=== PATIENT | male | born 1940 | race Caucasian/White ===

== ENCOUNTER 2017-01-25 07:54 | Day surgery (SDC) | payer MEDICARE, BC ==
[~2017-01-25 07:54] MED LIST: Buffered Lidocaine 1% SYRIN* 5 ML/SYR SYRINGE INTRADERM ONE
[2017-01-25] MEDS ORDERED: Midazolam* 1 MG/ML 2 ML VIAL (2 MG) ONE ×2 (10:09→10:10)
[2017-01-25 10:36] VITALS: BP 115/56
[2017-01-25] MEDS ORDERED: acetaZOLAMIDE TAB* 250 MG ONE (11:27)
[2017-01-25] MEDS ORDERED: Povidone Iodine 5% OPTH* 30 ML BTL ONE (11:28)
[2017-01-25] MEDS ORDERED: Proparacaine 0.5% OPHTH.SOL* 15 ML BTL ONE (11:28)
[2017-01-25] MEDS ORDERED: Lidocaine 1% MPF* 2 ML VIAL ONE (11:28)
[2017-01-25] MEDS ORDERED: Lidocaine 2% EPI 1:200000 MPF* 20 ML VIAL ONE (11:28)
[2017-01-25] MEDS ORDERED: Phenylephrine 2.5% OPTH.SOL* 2 ML BTL ONE (11:28)
[2017-01-25] MEDS ORDERED: Cyclopentolate 1% OPTH.SOL* 2 ML BTL ONE (11:28)
[2017-01-25] MEDS ORDERED: Flurbiprofen 0.03% OPTH.SOL* 2.5 ML BTL ONE (11:28)
[2017-01-25] MEDS ORDERED: Neomycin/Polymy/Dex OPTH.SUSP* MAXITROL 0.1% 5 ML ONE (11:28)
--- NOTE | 2017-01-26 02:32 | OP ---
OPERATIVE NOTE: DATE OF OPERATION: 01/25/17 - [facility] DATE OF : 42 SURGEON: Fabian Valerio MD. PREOPERATIVE DIAGNOSIS: Cataract, right eye. POSTOPERATIVE DIAGNOSIS: Cataract, right eye. OPERATIVE PROCEDURE: Phacoemulsification, right eye with IOL. PROCEDURE: The patient was brought to the operating room after being given 1/2 % Alcaine with epinephrine drops in the preoperative area. The eye was prepped and draped in the usual sterile fashion. Sterile drape and eyelid speculum were placed. Again, topical 1/2% Alcaine with epinephrine was given. A paracentesis incision was made at the 9 o'clock position with the No.75 blade. Clear cornea incision 2.2 x 2.2-mm was created at the 12 o'clock position starting at the anterior limbus using the 2.2-mm keratome. The anterior chamber was irrigated with 0.4 mL of 1% non-preservative intracameral lidocaine and filled with DisCoVisc. A capsulorrhexis was completed using the cystotome and the Utrata forceps. Hydrodissection was performed with balanced salt solution. The lens nucleus was removed with the Phacoemulsification handpiece without incident. Cortex was removed with the irrigation-aspiration handpiece. The capsular bag was re-inflated using DisCoVisc and an [id number] 14.5 implant was inserted with the shooter, entered through the 112 degree meridian. The horizontal jameson were made with the patient in preoperative area in seated position. The irrigation-aspiration handpiece was used to remove all residual DisCoVisc. The eye was refilled with balanced salt solution and the wound checked and found to be watertight. Topical Maxitrol drops were given. [id number]/[facility] #: [id number] MTDD
== END 2017-01-25 10:47 | disposition home or self-care (01) ==
LOC: OREAST 07:54
PROVIDERS: ATTEND Specialist
DX: H25.11 Age-related nuclear cataract, right eye (principal); H35.3223 Exudative age-related macular degeneration, left eye, with inactive scar; I44.0 Atrioventricular block, first degree; K21.9 Gastro-esophageal reflux disease without esophagitis
CPT/HCPCS: A9270-GY; J2250; V2787

== ENCOUNTER 2017-02-01 08:03 | Day surgery (SDC) | payer MEDICARE, BC ==
[~2017-02-01 08:03] MED LIST changes: +Acetaminophen TAB* 325 MG PO PRN
[2017-02-01] MEDS ORDERED: Midazolam* 1 MG/ML 5 ML VIAL (5 MG) ONE (10:11)
[2017-02-01 10:43] VITALS: BP 119/56
[2017-02-01] MEDS ORDERED: Flurbiprofen 0.03% OPTH.SOL* 2.5 ML BTL ONE (12:09)
[2017-02-01] MEDS ORDERED: Proparacaine 0.5% OPHTH.SOL* 15 ML BTL ONE (12:09)
[2017-02-01] MEDS ORDERED: Lidocaine 2% EPI 1:200000 MPF* 20 ML VIAL ONE (12:09)
[2017-02-01] MEDS ORDERED: Cyclopentolate 1% OPTH.SOL* 2 ML BTL ONE (12:09)
[2017-02-01] MEDS ORDERED: Phenylephrine 2.5% OPTH.SOL* 2 ML BTL ONE (12:09)
[2017-02-01] MEDS ORDERED: Lidocaine 1% MPF* 2 ML VIAL ONE (12:09)
[2017-02-01] MEDS ORDERED: Povidone Iodine 5% OPTH* 30 ML BTL ONE (12:09)
[2017-02-01] MEDS ORDERED: Neomycin/Polymy/Dex OPTH.SUSP* MAXITROL 0.1% 5 ML ONE (12:09)
--- NOTE | 2017-02-01 14:19 | OP ---
OPERATIVE NOTE: DATE OF OPERATION: 02/01/17 DATE OF : 42 SURGEON: Fabian Valerio M.D. PREOPERATIVE DIAGNOSIS: Cataract, left eye. POSTOPERATIVE DIAGNOSIS: Cataract, left eye. OPERATIVE PROCEDURE: Phacoemulsification, left eye with IOL. PROCEDURE: The patient was brought to the operating room after being given 1/2% Alcaine with epinep hrine drops in the preoperative area. The eye was prepped and draped in the usual sterile fashion. Sterile drape and eyelid speculum were placed. Again, topical 1/2% Alcaine with epinephrine was gi idris. A paracentesis incision was made at the 3 o'clock position with the No.75 blade. Clear cornea incision 2.2 x 2.2-mm was created at the 6 o'clock position starting at the anterior limbus using t he 2.2-mm keratome. The anterior chamber was irrigated with 0.4 mL of 1% non-preservative intracame ral lidocaine and filled with DisCoVisc. A capsulorrhexis was completed using the cystotome and the Utrata forceps. Hydrodissection was performed with balanced salt solution. The lens nucleus was re moved with the Phacoemulsification handpiece without incident. Cortex was removed with the irrigati on-aspiration handpiece. The capsular bag was re-inflated using DisCoVisc and an [id number] 15-diopter implant was inserted with the shooter. The irrigation-aspiration handpiece was used to remove all re sidual DisCoVisc. The eye was refilled with balanced salt solution and the wound checked and found to be watertight. Topical Maxitrol drops were given. [id number]/[facility] #: [id number]
== END 2017-02-01 10:52 | disposition home or self-care (01) ==
LOC: OREAST 08:03
PROVIDERS: ATTEND Specialist
DX: H25.12 Age-related nuclear cataract, left eye (principal); Z79.82 Long term (current) use of aspirin; Z88.1 Allergy status to other antibiotic agents; Z88.0 Allergy status to penicillin; Z88.2 Allergy status to sulfonamides
CPT/HCPCS: A9270-GY; J2250; V2632

== ENCOUNTER 2017-05-09 08:40 | Emergency (ER) | payer MEDICARE, BC ==
[2017-05-09 09:18] VITALS: BP 99/74
--- NOTE | 2017-05-09 10:45 | UC ---
Sandra Cruz Thomas, scribed for Cox BransonSanjay MD on 05/09/17 at 1008 . Complaint Male HPI - HPI Summary HPI Summary: The pt is a 76 y/o M presenting to [facility] c/o poor urinary stream that began five days ago. He also notes that 7 days ago, he had sudden-onset diarrhea that resolved after a day. Following this, he took Imodium and had residual stomach discomfort for a few days. At [facility], he also c/o nausea (yesterday), fever (onset 5 days ago and Temp 99 at [facility]), fatigue, back pain (normal per him after hiking) , and myalgia. He denies dysuria, perineal pain, CP, and abd pain. He notes that he chronically and intermittently has SOB, but he denies SOB at [facility]. He also notes a twinge of pain when he orgasms. The pain is aggravated and alleviated by nothing. The patient has treated the pain with Advil [employer]. He rates his current level of pain 9/10. PMHx: malaria, macular degeneration, arthritis. PSHx: congenital hernia repair, tonsillectomy, colonoscopy. SHx: daily alcohol use, no smoking. FHx: prostate [place], [place], [place]. He notes that his BP normally runs low. 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 He last saw his PCP last month and he had a normal exam including a prostate palpation. Note: 76 y/o with a Hx of malaria. Feels sick .Temp 99. BP 99/74. 9/10 pain discomfort. Visit history includes arthritis and GERD. Nurses Note: Body aches, poor urinary stream, nausea. Feels, "toxic." Loose stools as well. - History of Current Complaint Chief Complaint: UCGeneralIllness Stated Complaint: BODYACHES URINARY ISSUE Time Seen by Provider: 05/09/17 09:58 Hx Obtained From: Patient Onset/Duration: Lasting Days - 5, Still Present Timing: Intermittent Pain Intensity: 9 Pain Scale Used: 0-10 Numeric Aggravating Factor(s): Nothing Alleviating Factor(s): Nothing Associated Signs And Symptoms: Positive: Back Pain, Nausea. 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 colonoscopies. tonsillectomy as small child - Family History Known Family History: Positive: Diabetes, Other - POS: prostate [place], [place] - Social History Alcohol Use: Daily Substance Use Type: None Smoking Status (MU): Never Smoked Tobacco Review of Systems Constitutional: Fever - Temp 99 at [facility] but patient reports fever for 5 days Skin: Negative Eyes: Negative ENT: Negative Respiratory: Negative Cardiovascular: Negative Gastrointestinal: Diarrhea - 1 week ago, Nausea Genitourinary: Other - POS: poor urinary stream Motor: Negative Neurovascular: Negative Musculoskeletal: Myalgia, Other: - POS: fatigue Neurological: Negative Psychological: Negative All Other Systems Reviewed And Are Negative: Yes Physical Exam Triage Information Reviewed: Yes Vital Signs: Initial Vital Signs Temp 99.0 F 05/09/17 09:13 Pulse 76 05/09/17 09:13 Resp 18 05/09/17 09:13 BP 99/74 05/09/17 09:13 Pulse Ox 100 05/09/17 09:13 Vital Signs Reviewed: Yes - Additional Comments Appearance: The patient is well-appearing, is in no pain distress, and is well- nourished. Eyes: Conjunctiva are clear. ENT: The hearing is grossly normal, the pharynx is normal, and the TMs are normal. There is no muffled or hoarse voice. Neck: The neck is supple and nontender. Respiratory: The chest is nontender. The lungs are clear, there are normal breath sounds, and there is no respiratory distress. Cardiovascular: Heart is IRREGULAR RATE AND RHYTHM. There is no murmur. Abdomen: The abdomen is soft and nontender. There is no organomegaly. Bowel sounds: present Musculoskeletal: Strength is intact. The patient moves all extremities. Neurological: The patient is alert. Psychological: The patient displays age appropriate behavior Skin: Negative for rashes. Prostate: Nontender. There is a normal prostate. Complaint Male Course/Dx - Course Course Of Treatment: The patient presents with a poor urinary stream for the last 5 days. He also has nausea, fever, back pain, and myalgia. He denies dysuria, perineal pain, CP, and abd pain. Medications have been included in the original chart and reviewed. BP noted. UA negative. He is diagnosed with 1. Prostatitis, 2. Obstructive urinary symptoms. - Differential Dx/Diagnosis Provider Diagnoses: 1. Prostatitis, 2. Obstructive urinary symptoms. Discharge - Discharge Plan Condition: Stable Disposition: HOME Prescriptions: Ciprofloxacin TAB* [Cipro Tab*] 500 mg PO BID #20 tab Patient Education Materials: Prostatitis (ED) Referrals: Neymar Pearce MD [Medical Doctor] - 2 Days Bassam Ojeda MD [Medical Doctor] - 2 Days Additional Instructions: Thank you for helping us improve patient care by filling out the My Point Survey. WE DISCUSSED: 1. You my have prostatitis. I have started you on Cipro. 2. You are having new urinary obstructive symptoms and need to be seen by a urologist. 3. Go to ED for any increased pain, temperature or inability top urinate. 4. Call Dr. Pearce and Lynette's office. The documentation as recorded by the Sandra thomas Thomas accurately reflects the service I personally performed and the decisions made by me, Sanjay Chavez MD.
== END 2017-05-09 10:47 | disposition home or self-care (01) ==
LOC: UCEAST 08:40
DX: N41.9 Inflammatory disease of prostate, unspecified (principal); N13.9 Obstructive and reflux uropathy, unspecified; R11.0 Nausea; M54.9 Dorsalgia, unspecified; K21.9 Gastro-esophageal reflux disease without esophagitis; Z86.13 Personal history of malaria; Z88.0 Allergy status to penicillin; Z88.2 Allergy status to sulfonamides
CPT/HCPCS: 81003; 99212; G0463

== ENCOUNTER 2018-03-25 11:14 | Emergency (ER) | payer MEDICARE, OTHER ==
[2018-03-25 11:28] VITALS: BP 112/74
--- NOTE | 2018-03-25 11:43 | UC ---
Skin Complaint HPI - HPI Summary HPI Summary: started with itchy rash on L lower leg few days ago. now on bilat arms, and R top foot. very itchy. using hydrocortisone cream with good relief - History of Current Complaint Chief Complaint: UCRash Time Seen by Provider: 03/25/18 11:36 Stated Complaint: RASH ON BODY Hx Obtained From: Patient Onset/Duration: Gradual Onset Onset Severity: Mild Current Severity: Mild Pain Intensity: 0 Location: Diffuse Character: Pruritus, Redness, Raised Aggravating Factor(s): OTC Meds Alleviating Factor(s): Nothing Associated Signs & Symptoms: Positive: Negative Similar Episode/Dx as: poison queenie - Allergy/Home Medications Allergies/Adverse Reactions: Allergies Allergy/AdvReac Type Severity Reaction Status Date / Time Penicillins Allergy Intermediate Unknown Verified 03/25/18 11:28 Reaction Details Sulfa (Sulfonamide Allergy Intermediate Unknown Verified 03/25/18 11:28 Antibiotics) Reaction Details Home Medications: Home Medications Valacyclovir HCl [Valacyclovir] 250 mg PO DAILY WITH MEAL 03/25/18 [History Confirmed 03/25/18] Review of Systems Constitutional: Negative Skin: Rash Respiratory: Negative Cardiovascular: Negative Musculoskeletal: Negative Neurological: Negative Psychological: Negative All Other Systems Reviewed And Are Negative: Yes PMH/Surg Hx/FS Hx/Imm Hx Previously Healthy: Yes - Surgical History Surgical History: Yes Surgery Procedure, Year, and Place: 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 colonoscopies. tonsillectomy as small child. prostrate 2017 - Family History Known Family History: Positive: Diabetes, Other - POS: prostate [place], [place] - Social History Occupation: Retired Lives: With Family Alcohol Use: Daily Substance Use Type: None Smoking Status (MU): Never Smoked Tobacco Physical Exam Triage Information Reviewed: Yes Appearance: Well-Appearing, No Pain Distress, Well-Nourished Vital Signs: Initial Vital Signs Temp 97.9 F 03/25/18 11:23 Pulse 69 03/25/18 11:23 Resp 20 03/25/18 11:23 BP 112/74 03/25/18 11:23 Pulse Ox 100 03/25/18 11:23 Vital Signs Reviewed: Yes Eyes: Positive: Conjunctiva Clear Respiratory Exam: Normal Cardiovascular Exam: Normal Neurological Exam: Normal Psychological Exam: Normal Skin: Positive: rashes - erythemic, raised, pruritic rash on lower and upper ext. few with new vesicles, no evidence infection Course/Dx - Differential Diagnoses - Skin Complaint Differential Diagnoses: Allergic Reaction, Poison Queenie - Diagnoses Provider Diagnoses: poison queenie Discharge - Sign-Out/Discharge Documenting (check all that apply): Patient Departure - Discharge Plan Condition: Good Disposition: HOME Patient Education Materials: Poison Queenie (ED) Referrals: Mai Carroll MD [Primary Care Provider] - 2 Days (if no better) Additional Instructions: use Benadryl gel/cream on itchy rash as directed Also use hydrocortisone cream as directed wash exposed skin and clothes in warm soapy water after working in weeds - Billing Disposition and Condition Condition: GOOD Disposition: Home
== END 2018-03-25 12:15 | disposition home or self-care (01) ==
LOC: UCEAST 11:14
DX: L23.7 Allergic contact dermatitis due to plants, except food (principal); T63.791A Toxic effect of contact with other venomous plant, accidental (unintentional), initial encounter; Y92.9 Unspecified place or not applicable; Z88.0 Allergy status to penicillin; Z88.2 Allergy status to sulfonamides
CPT/HCPCS: 99211; G0463

== ENCOUNTER 2018-11-20 10:11 | Emergency (ER) | payer MEDICARE, BC ==
[2018-11-20 10:46] VITALS: BP 120/56
--- NOTE | 2018-11-20 11:00 | UC ---
Skin Complaint HPI - HPI Summary HPI Summary: 78 yo male presents with left big toe redness, pain, and intermittent drainage for the last 2 weeks. He developed this at the nail-skin fold and was much more painful and larger 2 weeks ago. He has been applying OTC triple anbx and this improved his symptoms, but redness and mild pain/swelling still present - thus prompting his visit to today. He is not diabetic. Denies injury, fever, or chills. - History of Current Complaint Chief Complaint: UCSkin Time Seen by Provider: 11/20/18 10:59 Stated Complaint: SKIN ISSUE ON TOE Hx Obtained From: Patient Onset/Duration: Gradual Onset Onset Severity: Moderate Current Severity: Mild Pain Intensity: 3 Pain Scale Used: 0-10 Numeric - Allergy/Home Medications Allergies/Adverse Reactions: Allergies Allergy/AdvReac Type Severity Reaction Status Date / Time Penicillins Allergy Intermediate Unknown Verified 03/25/18 11:28 Reaction Details Sulfa (Sulfonamide Allergy Intermediate Unknown Verified 03/25/18 11:28 Antibiotics) Reaction Details PMH/Surg Hx/FS Hx/Imm Hx - Additional Past Medical History Additional PMH: Erectile Dysfunction GI/ History: Gastroesophageal Reflux - Surgical History Surgical History: Yes Surgery Procedure, Year, and Place: 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 colonoscopies. tonsillectomy as small child. prostrate 2017 - Family History Known Family History: Positive: Diabetes, Other - POS: prostate [place], [place] - Social History Occupation: Retired Lives: With Family Alcohol Use: Daily Substance Use Type: None Smoking Status (MU): Never Smoked Tobacco Review of Systems All Other Systems Reviewed And Are Negative: Yes Constitutional: Positive: Negative Skin: Positive: Other - Left big toe redness and pain Respiratory: Positive: Negative Cardiovascular: Positive: Negative Neurovascular: Positive: Negative Neurological: Positive: Negative Psychological: Positive: Negative Physical Exam - Summary Physical Exam Summary: GENERAL: NAD. WDWN. No pain distress. SKIN: Left big toe: at the nail-skin fold there is mild erythema, edema, and TTP. No active drainage. No streaking. CHEST: No accessory muscle use. Breathing comfortably and in no distress. CV: Pulses intact. Cap refill <2seconds NEURO: Alert. PSYCH: Age appropriate behavior. Triage Information Reviewed: Yes Vital Signs: Initial Vital Signs Temp 98.2 F 11/20/18 10:41 Pulse 71 11/20/18 10:41 Resp 18 11/20/18 10:41 BP 120/56 11/20/18 10:41 Pulse Ox 99 11/20/18 10:41 Vital Signs Reviewed: Yes Course/Dx - Course Course Of Treatment: Left big toe paronychia - Diagnoses Provider Diagnosis: Paronychia Discharge - Sign-Out/Discharge Documenting (check all that apply): Patient Departure All imaging exams completed and their final reports reviewed: No Studies - Discharge Plan Condition: Stable Disposition: HOME Prescriptions: Cephalexin CAP* [Keflex CAP*] 500 mg PO BID #14 cap Patient Education Materials: Paronychia (ED) Referrals: Mai Carroll MD [Primary Care Provider] - Additional Instructions: If you develop a fever, shortness of breath, chest pain, new or worsening symptoms - please call your PCP or go to the ED. - Billing Disposition and Condition Condition: STABLE Disposition: Home
== END 2018-11-20 11:24 | disposition home or self-care (01) ==
LOC: UCEAST 10:11
DX: L03.032 Cellulitis of left toe (principal); Z88.2 Allergy status to sulfonamides; Z88.0 Allergy status to penicillin
CPT/HCPCS: 99212; G0463

== ENCOUNTER 2019-02-15 13:08 | Emergency (ER) | payer MEDICARE, BC ==
--- OUTSIDE RECORDS SUMMARY | 2019-02-15 13:15 | XMS REPORT | Continuity of Care Document ---
:1940 External Reference #:[id number] Author Name Fabian Valerio M.D. Address [address] [place] [address] Care Team Providers Name Role Phone Mai Carroll MD Primary Care Physician Unavailable Payers Date Identification Numbers Payment Provider Subscriber Policy Number: [id number] Medicare - NGS Rubens Thacker PayID: [id number] [address] [place] [address] Policy Number: [id number] [place] Plan Rubens Thacker PayID: [id number] [address] [place] [address] Problems Active Problems Provider Date Pigmentary retinal dystrophy Linsey Marrero O.D. Onset: 07/13/2015 Nuclear senile cataract Linsey Marrero O.D. Onset: 07/13/2015 Venous retinal branch occlusion Linsey Marrero O.D. Onset: 07/13/2015 Exudative age-related macular degeneration Fabian Valerio M.D. Onset: 08/07 Nonexudative age-related macular Fabian Valerio M.D. Onset: 08/07/2015 degeneration Vitreous hemorrhage Amanda Urbina O.D. Onset: 11/14/2015 Retinal hemorrhage Amanda Urbina O.D. Onset: 11/14/2015 Vitreous degeneration Amanda Urbina O.D. 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 Onset: 09/16/2016 degeneration of right eye Presence of intraocular lens Fabian Valerio M.D. 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 Solution Ranitidine HCL Mj [place] 150mg M.D. Tablets Valacyclovir HCL [place] Mj 500mg M.D. Tablets Viagra Sary Mj 100mg Tablets M.D. Vitamin C Unknown 500mg Tablets Aspirin Unknown 81mg Tablets Vitamin B Complex Unknown Tablets Preservision Areds 2 1 cap by mouth Fabian Valerio, Areds twice a day M.D. 2 Capsules Flax Seed Oil twice a day Unknown 1300mg Capsules Pro Nutrients [place] 3 twice a day Unknown 332.5mg Capsules DR History Medications Ciprofloxacin HCL instill one drop 5ml Fabian Valerio, 01/19/2017 - 0.3% in the right eye M.D. 02/12/2017 Solution three times a day, start the day before surgery Ketorolac Tromethamine 1 drop Left eye 10ml Fabian Valerio, 01/19/2017 - 0.5% daily M.Gary 05/21/2017 Solution Prednisolone Acetate 1 drop Left eye 10ml Fabian Valerio, 01/19/2017 - 1% daily M.Gary 05/21/2017 Suspension Medications Administered in Office Medication SIG Qnty Indications Ordering Provider Date Avastin Bevacizumab Fabian Valerio M.D. 04/18/2016 Injection Avastin Bevacizumab Fabian Valerio M.D. 02/22/2016 Injection Avastin Bevacizumab Fabian Valerio M.D. 12/28/2015 Injection Avastin Bevacizumab Fabian Valerio M.D. 11/23/2015 Injection Avastin Bevacizumab Fabian Valerio M.D. 10/05/2015 Injection Avastin Bevacizumab Fabian Valerio M.D. 09/14/2015 Injection Avastin Bevacizumab Fabian Valerio M.D. 08/17/2015 Injection Crizal Sarah Hawkins A.B.O. 02/25/2004 Injection Crizalex Franklin, 12/05/2001 Injection Fclsa Crizal Sarah Hawkins A.B.O. 08/11/2000 Injection Vital Signs Date Vital Result Comment 04/18/2016 1:32pm BP Systolic 128 mmHg BP Diastolic 64 mmHg Heart Rate 58 /min Respiratory Rate 12 /min 02/22/2016 1:58pm BP Systolic 110 mmHg BP Diastolic 64 mmHg Heart Rate 60 /min Respiratory Rate 16 /min 12/28/2015 1:05pm BP Systolic 130 mmHg BP Diastolic 81 mmHg Heart Rate 64 /min Respiratory Rate 16 /min 11/23/2015 1:50pm BP Systolic 121 mmHg BP Diastolic 80 mmHg Heart Rate 60 /min Respiratory Rate 16 /min 10/05/2015 1:43pm BP Systolic 114 mmHg BP Diastolic 66 mmHg Heart Rate 55 /min Respiratory Rate 14 /min 07/13/2015 2:06pm BP Systolic 116 mmHg BP Diastolic 62 mmHg Heart Rate 53 /min Procedures Date Code Description Status 08/07/2018 85764 Scanning Computerized Opthalmic Diagnostic Posterior Seg Completed Retina 08/07/2018 82520 Est Patient Comprehensive Exam Completed 01/25/2018 66757 Scanning Computerized Opthalmic Diagnostic Posterior Seg Completed Retina 01/25/2018 86828 Est Patient Comprehensive Exam Completed 09/25/2017 08927 Scanning Computerized Opthalmic Diagnostic Posterior Seg Completed Retina 09/25/2017 74562 Est Patient Comprehensive Exam Completed 05/22/2017 04858 Scanning Computerized Opthalmic Diagnostic Posterior Seg Completed Retina 05/22/2017 36820 Determination Of Refractive State Completed 05/22/2017 11335 Est Patient Comprehensive Exam Completed 02/01/2017 23987 Extracapsular Cataract Extraction W/Intraocular Lens Completed 01/25/2017 41931 Extracapsular Cataract Extraction W/Intraocular Lens Completed 01/19/2017 67229 Ophthalmic Biometry Completed 01/19/2017 07470 Ophthalmic Biometry Completed 01/19/2017 37443 Computerized Corneal Topography Completed 01/16/2017 05149 Est Patient Comprehensive Exam Completed 01/16/2017 40282 Scanning Computerized Opthalmic Diagnostic Posterior Seg Completed Retina 09/16/2016 40550 Scanning Computerized Opthalmic Diagnostic Posterior Seg Completed Retina 09/16/2016 64077 Est Patient Intermediate Exam Completed 09/16/2016 613 Proomega Tablets Completed 05/16/2016 03107 Scanning Computerized Opthalmic Diagnostic Posterior Seg Completed Retina 05/16/2016 02139 Determination Of Refractive State Completed 05/16/2016 75031 Est Patient Comprehensive Exam Completed 04/18/2016 93440 Injection Intravitreal Of A Pharmacologic Agent Completed 02/22/2016 50496 Injection Intravitreal Of A Pharmacologic Agent Completed 01/11/2016 16272 Scanning Computerized Opthalmic Diagnostic Posterior Seg Completed Retina 01/11/2016 47866 Est Patient Comprehensive Exam Completed 12/28/2015 27667 Injection Intravitreal Of A Pharmacologic Agent Completed 11/27/2015 85516 Est Patient Intermediate Exam Completed 11/23/2015 10952 Injection Intravitreal Of A Pharmacologic Agent Completed 11/14/2015 51489 Est Patient Comprehensive Exam Completed 10/15/2015 27344 Est Patient Comprehensive Exam Completed 10/15/2015 63969 Scanning Computerized Opthalmic Diagnostic Posterior Seg Completed Retina 10/05/2015 40581 Injection Intravitreal Of A Pharmacologic Agent Completed 09/14/2015 41894 Injection Intravitreal Of A Pharmacologic Agent Completed 08/17/2015 23666 Injection Intravitreal Of A Pharmacologic Agent Completed 08/07/2015 96092 Scanning Computerized Opthalmic Diagnostic Posterior Seg Completed Retina 08/07/2015 03437 Est Patient Comprehensive Exam Completed 07/13/2015 07731 Fundus Photography With Interpretation And Report Completed 07/13/2015 41707 Scanning Computerized Opthalmic Diagnostic Posterior Seg Completed Retina 07/13/2015 80661 Determination Of Refractive State Completed 07/13/2015 93767 Est Patient Comprehensive Exam Completed 08/13/2014 52961 Est Patient Comprehensive Exam Completed 01/23/2013 59580 Scanning Computerized Opthalmic Diagnostic Posterior Seg Completed Retina 01/23/2013 72442 Est Patient Comprehensive Exam Completed 01/24/2012 32962 Est Patient Comprehensive Exam Completed 01/24/2012 12771 Determination Of Refractive State Completed 01/24/2012 62243 Scanning Computerized Opthalmic Diagnostic Posterior Seg Completed Retina 12/13/2010 94641 Est Patient Comprehensive Exam Completed 06/24/2010 17971 Determination Of Refractive State Completed 06/24/2010 50759 Est Patient Comprehensive Exam Completed 06/04/2009 63179 Determination Of Refractive State Completed 06/04/2009 44182 Est Patient Comprehensive Exam Completed 04/08/2008 67672 Est Patient Comprehensive Exam Completed 04/05/2007 46619 Est Patient Comprehensive Exam Completed 04/05/2007 82349 Determination Of Refractive State Completed 04/05/2007 85513 Fundus Photography With Interpretation And Report Completed 03/29/2005 85725 Fundus Photography With Interpretation And Report Completed 02/25/2004 113 Crizal Completed 01/07/2004 53513 Determination Of Refractive State Completed 01/07/2004 55815 Est Patient Comprehensive Exam Completed 12/05/2001 113 Crizal Completed 08/11/2000 113 Crizal Completed Encounters Type Date Location Provider Dx Diagnosis Office Visit 01/19/2017 Fabian Brown, H25.11 Age- related 12:30p , parth Watkins nuclear cataract, right eye H25.12 Age-related nuclear cataract, left eye H35.3223 Exudative age-rel mclr degn, left eye, with inactive scar H25.13 Age-related nuclear cataract, bilateral Office Visit 08/13/2013 9:15a Fabian Collado, 362.74 Retinal Dystrophy MD Teodoro, parth Watkins Pigmentary Office Visit 01/24/2011 8:30a Fabian Cortez 379.21 Vitreous MD Teodoro, parth Marrero O.D. Degeneration Office Visit 07/01/2010 9:15a Fabian Collado, 365.04 Ocular Hypertension MD Teodoro, parth Watkins Office Visit 04/05/2006 3:30p Fabian Collado, 362.51 Nonexudative Senwarren Valerio MD, parth Glover. Macular Degeneration / Dry Office Visit 03/29/2005 3:00p Fabian Collado, 362.51 Nonexudative Malia Valerio MD, parth [place]. Macular Degeneration / Dry Plan of Treatment 02/05/2019 - Fabian Valerio M.D.H35.8492 Nonexudative age-related macular degeneration, right eye, inComments:Smoking can increase the risk of developing or worsening any eye related disease, as well as affect your overall health. If you are a smoker, we strongly recommend that you quit.If you are not a smoker , we strongly recommend that you do not start. You have Macular Degeneration. Check your Amsler Grid, with each eye separately, and take the AREDS II formula vitamins. If you notice any changes in your vision, please call the office and schedule an appointment to see any of the doctors here.Follow up:6 Month Follow Up OCT MAC Diagnostic Refraction You can expect to have your eyes dilated at your next visit. If Dr. Valerio orders any additional testing, it may require extra time. We recommend that you bring sunglasses, as dilation drops often make you light sensitive until they wear off. We always recommend you bring someone to drive you home if you are uncomfortable driving with your eyes dilated.If you have any questions before your next visit, feel free to call our office at .H35.5888 Exudative age-related macular degeneration, left eye, with iComments:The wet Macular Degeneration in your left eye appears to be inactive at this time. Continue to monitor your vision, with each eye separately. Use your Amsler Grid and continue taking the AREDS 2 Formula Vitamins. If you notice any changes in your vision before your next appointment , please call theoffice at to schedule an appointment.Follow up: Z96.1 Presence of intraocular lensComments:The artificial lens implants in both eyes appear to be stable at this time.
[2019-02-15 13:19] VITALS: BP 120/60
--- NOTE | 2019-02-15 13:35 | UC ---
Skin Complaint HPI - HPI Summary HPI Summary: 78-year-old male who thinks he has some poison ravi to his right foot second and third toes however he states when he was walking in the grass he did feel something in between his toes so is not sure if he got an insect bite as well. Over the past week he has developed redness, swelling and tenderness to the area and states "today I just don't feel well". He denies any fever or chills. - History of Current Complaint Chief Complaint: UCRash Time Seen by Provider: 02/15/19 13:35 Stated Complaint: RT FOOT Hx Obtained From: Patient Onset/Duration: Gradual Onset Skin Exposure Onset/Duration: Days Ago Timing: Constant Onset Severity: Mild Current Severity: Moderate Pain Intensity: 6 Location: Foot (Right) Character: Swelling, Pruritus - Right foot second and third toes., Redness Aggravating Factor(s): Touch Alleviating Factor(s): Nothing - Patient has been doing Epson salt soaks over the past couple of days Associated Signs & Symptoms: Positive: Negative Related History: Possible Reaction to: Insect - There is a possibility this was an insect bite but also the patient thinks he had exposure to poison ravi., Possible Reaction to: Environmental Exposure - Allergy/Home Medications Allergies/Adverse Reactions: Allergies Allergy/AdvReac Type Severity Reaction Status Date / Time Penicillins Allergy Intermediate Unknown Verified 02/15/19 13:19 Reaction Details Sulfa (Sulfonamide Allergy Intermediate Unknown Verified 02/15/19 13:19 Antibiotics) Reaction Details PMH/Surg Hx/FS Hx/Imm Hx Previously Healthy: Yes - Surgical History Surgical History: Yes Surgery Procedure, Year, and Place: 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 colonoscopies. tonsillectomy as small child. prostrate 2017 - Family History Known Family History: Positive: Diabetes, Other - POS: prostate [place], [place] - Social History Occupation: Retired Alcohol Use: Daily Substance Use Type: None Smoking Status (MU): Never Smoked Tobacco Review of Systems All Other Systems Reviewed And Are Negative: Yes Constitutional: Positive: Negative - Patient states no fever or chills however today he states "I don't feel well". Skin: Positive: Rash - Small areas of rash on his second and third right toes., Other - Swelling and erythema to toes and the distal third dorsum of his right foot. Is Patient Immunocompromised?: No Physical Exam Triage Information Reviewed: Yes Appearance: Well-Appearing, No Pain Distress, Well-Nourished Vital Signs: Initial Vital Signs Temp 98.7 F 02/15/19 13:14 Pulse 77 02/15/19 13:14 Resp 16 02/15/19 13:14 BP 120/60 02/15/19 13:14 Pulse Ox 100 02/15/19 13:14 Vital Signs Reviewed: Yes Musculoskeletal: Positive: Strength Intact, ROM Intact, Other: - Sensation present. Good peripheral pulses neuro sensation capillary refill, full range of motion with flexion and extension against resistance. The second and third toes and the distal third dorsum of his right foot are erythematous, the toes are swollen, however he's he has good Neurological: Positive: Alert, Muscle Tone Normal Psychological Exam: Normal Skin: Positive: Other - The second and third toes of the right foot do have 2 or 3 areas where it could either be a rash like contact dermatitis or insect bites. Course/Dx - Course Course Of Treatment: Patient is comfortable here and going to start him on cephalexin and he is to elevate his foot as much as possible and walk around in a sandal which will allow it to air out a little bit and is to follow-up with his primary care provider if no improvement in 3 or 4 days. - Diagnoses Provider Diagnosis: Cellulitis of toe of right foot Discharge - Sign-Out/Discharge Documenting (check all that apply): Patient Departure All imaging exams completed and their final reports reviewed: No Studies - Discharge Plan Condition: Fair Disposition: HOME Prescriptions: cephALEXin [Keflex] 500 mg PO TID 10 Days #30 capsule Patient Education Materials: Cellulitis (DC) Referrals: Mai Carroll MD [Primary Care Provider] - Additional Instructions: Keep her foot elevated as much as possible, apply warm moist compresses to the area 4-6 times a day for 20 minutes each time. Definite follow-up with your primary care provider if no improvement in 2 or 3 days. If you develop red streaks up your leg, fever or chills or worsening symptoms your to go to the emergency room for further treatment. - Billing Disposition and Condition Condition: FAIR Disposition: Home
== END 2019-02-15 13:53 | disposition home or self-care (01) ==
LOC: UCEAST 13:08
DX: L03.031 Cellulitis of right toe (principal); Z88.0 Allergy status to penicillin; Z88.1 Allergy status to other antibiotic agents
CPT/HCPCS: 99212; G0463

== ENCOUNTER 2019-02-25 11:12 | Emergency (ER) | payer MEDICARE, BC ==
[2019-02-25 11:27] VITALS: BP 115/63
--- NOTE | 2019-02-25 11:33 | UC ---
Skin Complaint HPI - HPI Summary HPI Summary: 78-year-old male presents for a recheck of his toes on the right foot. He was seen here on 02/15/2019 for cellulitis versus contact dermatitis of the third and fourth right toes. He was placed on a ten-day course of cephalexin 500 mg 3 times a day which he completed this morning. He states that the redness and swelling have improved but is concerned because the toes continue to appear slightly reddened. Patient does note that he has a history of chronic tinea pedis of the fifth toe of the right foot which she treats with econazole cream. Denies fever, chills, joint pain, or reduced range of motion. - History of Current Complaint Chief Complaint: UCLowerExtremity Time Seen by Provider: 02/25/19 11:19 Stated Complaint: TOE RECHECK Hx Obtained From: Patient Pain Intensity: 1 - Allergy/Home Medications Allergies/Adverse Reactions: Allergies Allergy/AdvReac Type Severity Reaction Status Date / Time Penicillins Allergy Intermediate Unknown Verified 02/25/19 11:19 Reaction Details Sulfa (Sulfonamide Allergy Intermediate Unknown Verified 02/25/19 11:19 Antibiotics) Reaction Details PMH/Surg Hx/FS Hx/Imm Hx Previously Healthy: Yes GI/ History: Gastroesophageal Reflux - Surgical History Surgical History: Yes Surgery Procedure, Year, and Place: 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 colonoscopies. tonsillectomy as small child. prostrate 2017 - Family History Known Family History: Positive: Diabetes, Other - POS: prostate [place], [place] - Social History Occupation: Retired Lives: With Family Alcohol Use: Daily Alcohol Amount: 1 glass wine/ night Substance Use Type: None Smoking Status (MU): Never Smoked Tobacco Review of Systems All Other Systems Reviewed And Are Negative: Yes Constitutional: Negative: Fever, Chills Skin: Positive: Other - See HPI Respiratory: Positive: Negative Cardiovascular: Positive: Negative Gastrointestinal: Positive: Negative Genitourinary: Positive: Negative Musculoskeletal: Positive: Negative Neurological: Positive: Negative Is Patient Immunocompromised?: No Physical Exam - Summary Physical Exam Summary: GENERAL APPEARANCE: Well developed, well nourished, alert and cooperative, and appears to be in no acute distress. CARDIAC: Normal S1 and S2. No S3, S4 or murmurs. Rhythm is regular. There is no peripheral edema, cyanosis or pallor. Extremities are warm and well perfused. Capillary refill is less than 2 seconds. Peripheral pulses intact. LUNGS: Clear to auscultation without rales, rhonchi, wheezing or diminished breath sounds. ABDOMEN: Positive bowel sounds. Soft, nondistended, nontender. No guarding or rebound. No masses or hepatosplenomegally. MUSKULOSKELETAL: Normal muscular development. Normal gait. Full painless ROM to the toes of the right foot. Circulation and sensation intact. SKIN: Skin normal color, texture and turgor. Mild erythematous scales between the 3rd and 4th toes of the right foot with some fissuring. There is also some dry, peeling skin over the dorsal aspect of the toes. No significant erythema, edema, or increased warmth was appreciated. Triage Information Reviewed: Yes Vital Signs: Initial Vital Signs Temp 98.7 F 02/25/19 11:21 Pulse 63 02/25/19 11:21 Resp 16 02/25/19 11:21 BP 115/63 02/25/19 11:21 Pulse Ox 98 02/25/19 11:21 Vital Signs Reviewed: Yes Course/Dx - Course Course Of Treatment: 78-year-old male presents for a recheck of his toes on the right foot. He was seen here on 02/15/2019 for cellulitis versus contact dermatitis of the third and fourth right toes. He was placed on a ten-day course of cephalexin 500 mg 3 times a day which he completed this morning. He states that the redness and swelling have improved but is concerned because the toes continue to appear slightly reddened. Patient does note that he has a history of chronic tinea pedis of the fifth toe of the right foot which she treats with econazole cream. Denies fever, chills, joint pain, or reduced range of motion. Afebrile. Vital signs stable. Patient had mild erythematous scales between the 3rd and 4th toes of the right foot with some fissuring. He was also noted to have some dry, peeling skin over the dorsal aspect of the toes. No significant erythema, edema, or increased warmth was appreciated. Full painless range of motion. Circulation and sensation were intact. Discussed with the patient that he appears to have some tinea pedis but no evidence of a bacterial infection. I am not recommending continuing antibiotics at this time. Patient is to use his econazole cream according to directions and to follow-up with his primary care provider in 3-5 days for recheck. Anticipatory guidance and warning symptoms are reviewed with the patient. Verbalizes understanding and agrees with plan of care. - Differential Diagnoses - Skin Complaint Differential Diagnoses: Cellulitis, Contact Dermatitis, MRSA, Poison [place], Tinea - Diagnoses Provider Diagnosis: Tinea pedis of right foot Discharge - Sign-Out/Discharge Documenting (check all that apply): Patient Departure All imaging exams completed and their final reports reviewed: No Studies - Discharge Plan Condition: Stable Disposition: HOME Patient Education Materials: Athlete's Foot (ED) Referrals: Mai Carroll MD [Primary Care Provider] - 3 Days Additional Instructions: You appear to have a fungal infection between the 3rd and 4th toes of your right foot. I do not see any evidence of bacterial infection at this time and would not recommend additional antibiotics at this time. Use your econazole cream as directed to the affected area. Follow up with your primary care provider in 3-5 days for a recheck of your foot. Seek immediate medical attention if you develop fever greater than 100.5 F, redness that spreads, swelling in the foot or toes, or any worsening of symptoms. - Billing Disposition and Condition Condition: STABLE Disposition: Home
== END 2019-02-25 11:50 | disposition home or self-care (01) ==
LOC: UCEAST 11:12
DX: B35.3 Tinea pedis (principal); K21.9 Gastro-esophageal reflux disease without esophagitis; Z88.0 Allergy status to penicillin; Z88.2 Allergy status to sulfonamides
CPT/HCPCS: 99211; G0463